=== PATIENT | male | born 1970 | race Caucasian/White ===

== ENCOUNTER 2016-08-23 11:38 | Day surgery (SDC) | payer BC, OTHER ==
[2016-08-20 15:50] VITALS: BMI 34.4
[2016-08-23 13:07] VITALS: RESP 16; TEMP 98.7
[2016-08-23] MEDS ORDERED: LACTATED RINGERS 1,000 ML IV ONE (13:09)
[2016-08-23] MEDS ORDERED: LIDOCAINE 1% 20 ML VIAL (10MG/ML) FOR IV START INTRADERMA ONE (13:10)
[2016-08-23] MEDS ORDERED: PROPOFOL 10 MG/ML 20 ML VIAL IV ONE (13:35)
[2016-08-23] MEDS ORDERED: LIDOCAINE 1% INJ 10MG/ML (20 ML MDV) ONE (13:35)
--- NOTE | 2016-08-23 13:47 | P.PCN ---
Date of Procedure: 08/23/16 Procedure(s) Performed: BRIEF HISTORY: Patient is a 46-year-old, pleasant, white male, scheduled for an upper endoscopy as a part of evaluation of long-standing history of GERD and atypical chest pain. He is presently on dexilant 60 mg daily as well as Carafate 1 g 4 times daily and still remains symptomatic. He experiences chest pain almost on a daily basis. He still has occasional heartburn also. PROCEDURE PERFORMED: Esophagogastroduodenoscopy with biopsy. PREOPERATIVE DIAGNOSIS: GERD/atypical chest pain. IV sedation per anesthesia. PROCEDURE: After informed consent was obtained, the patient was brought into the endoscopy unit. IV conscious sedation was administered by Anesthesia under continuous monitoring. Initially the Olympus GIF-140 video endoscope was inserted into the mouth. Esophagus intubated without any difficulty. It was gradually advanced into the stomach and duodenum and carefully examined. The bulb and the second part of the duodenum appeared normal. The scope at this time was withdrawn to the stomach, adequately insufflated with air, and upon careful examination, mucosa of the antrum, had mild mottling of the mucosa and biopsies were done from this area. The body, cardia and the fundus appeared normal. The scope was then withdrawn into the esophagus. The GE junction was located at 41 cm from the incisors. There was once for visual erosion consistent with LA grade A reflux esophagitis. The rest of the esophagus appeared normal and the patient tolerated the procedure well. IMPRESSION: 1. One superficial erosion at the GE junction consistent with LA grade A reflux esophagitis. 2. Mild antral gastritis but no evidence of peptic ulcer disease. RECOMMENDATIONS: The findings of this examination were discussed with the patient as well as his family. He was advised to continue with excellent 60 mg daily as well as Carafate. He was advised to take pepcid 20 mg twice daily and continue with antireflux measures. If he still remains symptomatic he was advised to follow up in office in 1 month for further management.
[2016-08-23 14:14] VITALS: BP 138/75; PULSE 70
== END 2016-08-23 14:41 | disposition home or self-care (01) ==
LOC: ORWHC2ENDO 11:38
PROVIDERS: ATTEND Internal Medicine Gastroenterology
DX: K29.50 Unspecified chronic gastritis without bleeding (principal); K21.0 Gastro-esophageal reflux disease with esophagitis; G89.29 Other chronic pain; M54.9 Dorsalgia, unspecified; Z79.891 Long term (current) use of opiate analgesic; Z79.899 Other long term (current) drug therapy; I10 Essential (primary) hypertension; E78.5 Hyperlipidemia, unspecified; Z87.891 Personal history of nicotine dependence
CPT/HCPCS: 88305; 88342; 43239; J2001; J2704

== ENCOUNTER 2016-08-29 06:26 | Day surgery (SDC) | payer BC, OTHER ==
[2016-08-28 10:48] VITALS: BMI 34.4
[~2016-08-29 06:26] MED LIST: LACTATED RINGERS 1,000 ML IV SCH
[2016-08-29 07:04] VITALS: TEMP 98.1
[2016-08-29] MEDS ORDERED: IOHEXOL 180 MG/ML 1 ML ML ONE (07:36)
[2016-08-29] MEDS ORDERED: TRIAMCINOLONE ACETONIDE 40 MG/ML 1 ML VIAL ONE (07:36)
--- NOTE | 2016-08-29 08:00 | P.PCN ---
Date of Procedure: 08/29/16 Procedure(s) Performed: PREOPERATIVE DIAGNOSIS: 1- Lumbar Degenerative Disc Diseases 2-Lumbar radiculitis POSTOPERATIVE DIAGNOSIS: 1-Lumber Degenerative Disc Diseases 2-Lumbar radiculitis PROCEDURE 1. Lumbar epidural steroid injection under fluoroscopic guidance at the L5-S1 level. 2. Lumbar epidurogram. ANESTHESIA: Local with 1% lidocaine 3 ml only . EBL: Minimal PROCEDURE INDICATION: The patient with low back pain and radiculitis symptoms unresponsive to conservative treatment. Fluoroscopy was used to optimize visualization of the needle placement and to maximize safety. PROCEDURE DESCRIPTION / TECHNIQUE: The patient was seen and identified in the preoperative area. Risks, benefits , complications including but not limited to infections ,bleeding ,allergic reaction to the medications ,nerve damage and not complete pain releife , and alternatives were discussed with the patient. The patient agreed to proceed with the procedure and signed the consent, and vital signs were stable. Patient was taken to the OR and time out was completed. The patient was placed in the prone position on procedure table and a pillow was placed under the abdomen to reduce lumbar lordosis. The lumbosacral area was prepped and draped in the usual sterile fashion.ere closely monitored during the procedure. Vital signs was monitered during the entire procedure. Using anterior-posterior fluoroscopy, the L5-S1 interlaminar space was identified and the skin over this site was marked and then infiltrated with 1% lidocaine subcutaneously. Subsequently, a 20-gauge Tuohy epidural needle was inserted and advanced toward the epidural space using the ``Loss of resistance technique and guided by AP and lateral fluoroscopy. The correct needle position in the epidural space was verified with the injection of 2 mL of the water soluble contrast dye Omnipaque 180 contrast and observing an excellent epidurogram with the epidural spread of the dye, after negative aspiration for blood and CSF and in the absence of paresthesias. Again after negative aspiration, a 6 ml mixture containing 80 mg of Kenalog and 2 ml of preservative free Normal Saline, and 2 ml of preservative free lidocaine 1% solution was injected and a washout of epidurogram was seen. Needle was withdrawn intact, skin was cleansed, and bandages were applied. COMPLICATIONS: None DISPOSITION / PLANS: The patient was placed in a supine position and transferred to the recovery area in a stable condition for observation. There was no evidence of lower extremity motor or sensory deficit after the procedure. Patient was discharged from the recovery room after meeting discharge criteria. Home discharge instructions were given to the patient by the staff. The patient was reexamined prior to discharge. The patient will schedule a follow up in the clinic in 2-4 weeks.
--- NOTE | 2016-08-29 08:02 | FL ---
EXAMINATION TYPE: FL guided pain mgmt statistic DATE OF EXAM: 08/29/2016 7:57 AM FLUOROSCOPY Fluoroscopy time of 3 seconds was used during lumbar epidural injection. 1 image/s document/s the pr behzad.
[2016-08-29 08:07] VITALS: BP 131/63; PULSE 68; RESP 16
== END 2016-08-29 08:15 | disposition home or self-care (01) ==
LOC: ORPAIN 06:26
PROVIDERS: ATTEND Specialist
DX: M51.16 Intervertebral disc disorders with radiculopathy, lumbar region (principal)
CPT/HCPCS: 62323; J3301; Q9965

== ENCOUNTER 2016-10-09 07:17 | Day surgery (SDC) | payer BC, OTHER ==
[2016-10-03 16:00] VITALS: BMI 33.7
[2016-10-09 08:26] VITALS: RESP 16; TEMP 97.5
[2016-10-09] MEDS ORDERED: BUPIVACAINE (PF) 0.25% 30 ML VIAL ONE (08:57)
[2016-10-09] MEDS ORDERED: IOHEXOL 180 MG/ML 1 ML ML ONE (08:57)
[2016-10-09] MEDS ORDERED: TRIAMCINOLONE ACETONIDE 40 MG/ML 1 ML VIAL ONE (08:57)
[2016-10-09] MEDS ORDERED: LACTATED RINGERS 1,000 ML IV SCH (09:00)
--- NOTE | 2016-10-09 09:21 | P.PCN ---
Date of Procedure: 10/09/16 Preoperative Diagnosis: Lumbar degenerative disc disease Postoperative Diagnosis: Same as above Procedure(s) Performed: Lumbar epidural steroid injection under fluoroscopic guidance Anesthesia: MAC Surgeon: Chapo Cui Condition: stable Disposition: PACU Description of Procedure: The patient was seen in preop holding area consent was obtained then he was brought into the procedure room and placed prone position. Skin was prepped with Betadine 3 and drapedbinasterile manner.Lidocaine1% wasusedtonumbtheskinupatthetargetpoint that Was at the L4 5 levelintheleftparamedianapproach.I used 20-gauge 3-1/2 inch Touhy epidural needle with [id number] to air to identify the epidural space. There was positive [id number] to air negative aspiration for any CSF or blood and I then injected 1 mL of Omnipaque which showed typical epidurogram on AP and lateral views of fluoroscopy. After that I injected 40 mg of Kenalog +2 MLS of Marcaine 0.5% +4 MLS of posterior free normal saline to a total volume of 7 MLS in epidural space. Patient tolerated procedure well.
--- NOTE | 2016-10-09 09:28 | FL ---
EXAMINATION TYPE: FL guided pain mgmt statistic DATE OF EXAM: 10/09/2016 9:21 AM HISTORY: Flouroscopy time 8 seconds of fluoroscopy provided. IMPRESSION: 1. Fluoroscopy time.
[2016-10-09 09:41] VITALS: BP 145/61; PULSE 54
== END 2016-10-09 09:43 | disposition home or self-care (01) ==
LOC: ORPAIN 07:17
PROVIDERS: ATTEND Anesthesiology
DX: M51.36 Other intervertebral disc degeneration, lumbar region (principal); I10 Essential (primary) hypertension
CPT/HCPCS: 62323; J3301; Q9965

== ENCOUNTER → 2017-10-02 | Outpatient (CLI) | payer BC, OTHER ==
--- NOTE | 2017-10-03 08:54 | XR ---
EXAMINATION TYPE: XR ribs bilat w pa chest xray DATE OF EXAM: 10/02/2017 COMPARISON: NONE HISTORY: Anterior superior left rib pain with no known injury. TECHNIQUE: Single frontal view of the chest as well as frontal view, and oblique views of the ribs we re performed. FINDINGS: The lungs are clear without evidence of focal consolidation, pleural effusion or pneumothor ax. Cardia mediastinal fluid is within normal limits. Osseous structures are grossly intact. On the f rontal and oblique views of the ribs there is no gross evidence of suspicious osseous lesion, acute f racture, or callus healed fracture. No displaced ribs are seen. Cholecystectomy clips are noted withi n the right upper quadrant. IMPRESSION: No acute cardiopulmonary process or evidence of rib fracture. There is concern for underl jasmyn osseous lesion nonvisualized on chest radiograph CT thorax or nuclear medicine bone scan could b e performed for further evaluation.
== END | disposition home or self-care (01) ==
LOC: RADXRYALE 15:54
PROVIDERS: ATTEND Nurse Practitioner Family
DX: R07.82 Intercostal pain (principal)
CPT/HCPCS: 71111